=== PATIENT | female | born 1960 | race Two or more races ===

== ENCOUNTER 2025-04-18 07:22 | Observation (INO) | payer OTHER ==
[2025-04-10 15:27] LABS: MEAN PLATELET VOLUME 6.1 FL (7.4-10.4); PRE OP HEMATOCRIT 41.3 % (35.0-45.0); PRE OP HEMOGLOBIN 13.9 g/dL (12.0-16.0); PRE OP PLATELET COUNT 381 X10'3 (140-440); PRE OP WHITE BLOOD COUNT 7.7 10'3 (4.8-10.8); RED CELL DISTRIBUTION WIDTH 14.2 % (11.5-14.5)
[2025-04-10 15:37] LABS: CREATININE 0.70 MG/DL (0.40-0.90); PRE OP ALT 19 U/L (30-65); PRE OP ANION GAP 5 (8-16); PRE OP AST 19 U/L (10-37); PRE OP BILIRUB, TOTAL 0.4 MG/DL (0.0-1.0); PRE OP GLUCOSE 82 MG/DL (70-104); PRE OP POTASSIUM 3.7 MMOL/L (3.4-5.1); PRE OP SODIUM 139 MMOL/L (135-145); TOTAL CARBON DIOXIDE 29.1 MMOL/L (24-32); eGFR 85 ML/MIN
[2025-04-18] VITALS (19 sets, daily range): BP systolic 98–142; BP diastolic 48–82; PULSE 41–73; RESP 11–16; TEMP 96.9–97.8; O2SAT 94–100
[~2025-04-18] VITALS: Ht 167.6 cm; Wt 90.9 kg
[2025-04-18] MEDS: ceFAZolin 2gm/dext,iso 50mL 50 ML IV ONE (05:30)
[~2025-04-18 07:22] MED LIST: ACET-812 PO; CELE200C PO; MAGN100T PO; OMEG-5 PO; ROPIVAcaine 0.5% (5mg/ml) 30ml vial ONE; TRAM50TA2 PO; ZINC220T3 PO; ZOLP5TAB19 PO; [UNRECOGNIZED DRUG - CODE] PO
[2025-04-18] MEDS ORDERED: PCA WASTE DOCUMENTATION 1 MG ML MC SCH (07:25)
[2025-04-18] MEDS ORDERED: bisacodyl 10mg suppository rectal RC PRN (07:25)
[2025-04-18] MEDS ORDERED: magnesium hydroxide 30ml (MOM) UD suspension PO PRN (07:25)
[2025-04-18] MEDS: ringers solution, lacted 1,000 ML IV SCH ×2 (07:56→10:00)
[2025-04-18] MEDS: vancomycin/NS 1 GM ADD-VANTAGE 250 ML IV ONE (07:56)
[2025-04-18] MEDS: zinc sulfate 220mg capsule PO SCH (08:00)
[2025-04-18] MEDS: MAGNESIUM GLYCINATE 120 MG PO SCH (08:00)
[2025-04-18] MEDS: OMEGA-3/DHA/EPA/FISH OIL 1 EACH CAPSULE.DR PO SCH (08:00)
[2025-04-18] MEDS ORDERED: tetracaine 1% (10mg/ml) pres. free inj. ONE (09:02)
[2025-04-18] MEDS ORDERED: fentaNYL/PF 50MCG/1 ML 2ML syringe ONE (09:19)
[2025-04-18] MEDS ORDERED: MIDAZolam 1mg/ml 10ml vial ONE (09:19)
[2025-04-18] MEDS ORDERED: propofol inj 20 ML IV ONE ×2 (09:28)
[2025-04-18] MEDS ORDERED: hydrALAZINE 20mg/ml inj. IV PRN (10:00)
[2025-04-18] MEDS ORDERED: ROPIVAcaine 0.2% (10 MG/5 ML) BOLUS INJECTION ADDCANAL PRN (10:00)
[2025-04-18] MEDS ORDERED: ondansetron/PF 4mg/2ml inj IV PRN (10:00)
[2025-04-18] MEDS ORDERED: fentaNYL/PF 50MCG/1 ML 2ML syringe IV PRN ×2 (10:00)
[2025-04-18] MEDS ORDERED: morphine 4 MG/ML inj SYRINge IV PRN (10:00)
[2025-04-18] MEDS ORDERED: labetalol 20mg/4ml (5mg/ml) syringe IV PRN (10:00)
--- NOTE | 2025-04-18 10:06 | ANESTHESIA RECORDS ---
Nerve Block Providers to CC CC: AMILCAR TSAI MD ~ Diagnosis: Nerve Block requested by: AMILCAR TSAI MD Neuraxial/Peripheral Nerve Block requested for Post-operative analgesia by Physician above DIAGNOSIS: Post-operative pain. (Body Area) Shoulder: [ ] Arm: [ ] Hand: [ ] Hip: [ ] Knee: [ ] Ankle: [ ] Foot: [ ] Leg: [ ] Abdomen: [ ] Other: [ ] Post-operative pain expected to be/is inadequately managed by oral or IV medicines. Regional anesthetic expected to facilitate rehabilitation and/or discharge from facility. Other:[ _] Procedure Performed: Femoral / Saphenous: Left Time out Done?: Yes Time of Time out: 09:25 Procedure Details: PROCEDURE DETAILS: Risks, benefits and alternatives explained Informed consent obtained, and patient wishes to proceed Conscious sedation with indicated monitors Patient positioned, pertinent anatomy defined, sterile technique used Needle used: [ ] 3 1/8 inch Stimuplex Ultra 22ga [ ] 4 inch Stimuplex Ultra 20ga [ ] 6 inch Stimuplex Ultra 20ga [ x] 6 inch, Quikbloc over the needle catheter set 20ga [ ] 4 inch Quikbloc over the needle catheter set 20ga [ ]Other: [ ] Loss of twitch @ [ ]mA [ ] Single Injection [ X] Catheter Ultrasound Guidance Used: [X ] Yes [ ] No Attempts:[ 1 ] Medicines injected: [ ]Clonidine Amt:[ ] [ ]Dexamethasone Amt:[ ] [X ]Ropivacaine Amt:[_0.5% 30 C.C ] [ ]Bupivacaine Amt:[ ] [ ]Lidocaine Amt:[ ] [ ]Exparel 1.33%:[ ] [ ]Epinephrine Amt[ ] [ ]Other: [ ] Intermittent aspiration during local anesthetic administration No symptoms of intraneural or intravenous injection Patient tolerated procedure well Comments left mid medial thigh is examined with Ultrasound and Adductor canal and vessels in the canal are identified. Catheter over needle is placed in the canal and upon negative aspiration,local mix is injected,spread is noted. Needle is removed,catheter is secured. sterile dresssings applied .On Q pump is ordered. Ultrasound images captured and documented. DIANN BEYER MD Apr 18, 2025 10:06
[2025-04-18] MEDS ORDERED: ROPIVAcaine 0.5% (5mg/ml) 30ml vial ONE (10:24)
[2025-04-18] MEDS: ROPIVAcaine 0.2%/PF PUMP/bolus 545 ML ADDCANAL SCH (12:09)
--- NOTE | 2025-04-18 15:10 | OPERATIVE REPORT ---
Operative Report Operative Report OPERATIVE REPORT [facility] [address] [place] [address] Date of service: April 18, 2025 PREOPERATIVE DIAGNOSIS M17..16 Primary osteoarthritis of left knee POSTOPERATIVE DIAGNOSIS M17..16 Primary osteoarthritis of left knee Operation Performed 16000 Total Knee Arthroplasty with this modifier: [place] [id number] Computer Assisted Navigation Musculoskeletal - Imageless Procedure: Computer-assisted, robotically-assisted, left total knee arthroplasty. Surgeon: Dr. Faraz Chou Neurodiagnostic Tech: Pavithra Martínez PA-C Anesthesiologist: Dr. Blackmon Anesthesia: General anesthetic Indications: 64-year-old female who has chronic osteoarthritis of the left knee with severe pain and limitation of activities despite extensive non-operative management. This patient has had extensive conservative treatment of knee joint arthritis, including rest, external joint support, anti-inflammatory medications, physical therapy, and corticosteroid injection. Physical therapy has been provided, along with a home exercise program prior to making the deci isabel to proceed with surgical treatment. This therapeutic intervention did not provide any substantial relief of symptoms or improvement in function. The patient has been utilizing a cane, set of crutches, or walker, for more than 3 months prior to deciding to proceed with surgery. These interventions have not provided sufficient relief of pain to allow improvement in function. The patient has utilized non-steroidal anti-inflammatory medications for relief of pain over an extended period of time (more than 2 months), and has not experienced sufficient improvement in symptoms. Despite these treatments, this patient has continued difficulties with pain and limited function. They are unable to walk long distances, do vigorous activities, sit or sleep comfortably. Total knee replacement is the next reasonable step in terms of treatment. Indications for virtual assistant for advertisers surgeon: A second set of skilled hands with specific orthopedic knowledge of the surgical procedure and orthopedic surgical techniques was necessary to accomplish this operation successfully, and with the least amount of morbidity for the patient. This facilitated operative exposure, manipulation and handling of tissues, placement of any implants, and accomplishment of wound closure. Findings: There was indeed a very severely arthritic knee, with loss of cartilage, exposed bone, and marginal osteophytes. The medial compartment was particularly bad. A 5 degree varus deformity and 0 degree flexion contracture were measured preoperatively. Post operative alignment was 0 varus, and 3 extension. Complications: None Estimated Blood Loss: 150 cc Implants: A Romeo Persona CR total knee system was utilized with a size nine narrow left bone ingrowth femoral component, a size F left bone ingrowth tibial component, and a 32 mm cemented patellar component. A 10 mm medial congruent left tibial insert was utilized. The [employer] robotically assisted total knee arthroplasty system and computer was utilized. Procedure: The risks, benefits, expected results, and possible complications of the planned procedure had been explained to the patient and informed consent obtained. The patient was taken to the operating room and underwent a general anesthetic. The patient was placed in the supine position on the operating ta ble, and the left leg was prepped and draped in the usual fashion. A timeout was taken prior to surgery, confirming patient identification, operative side operative site, planned procedure, administration of pre-operative antibiotics, site marking, and presence of all necessary implants and instruments, x-rays and equipment. A standard anterior, slightly mediall approach was performed with a medial parapatellar arthrotomy, and a VMO split. Time was then spent removing excessive synovial tissue and exposing the medial and lateral gutters, as well as moving the anterior sections of the residual menisci. The patella was mobilized to be able to be retracted laterally. This gave exposure of the anterior aspect of the knee. Attention was then directed to the patella. An oscillating saw was utilized to make a flat cut in a freehand manner, removing approximately 9 mm of thickness. The patella was then sized and drilled for the appropriate size patella implant. Infrared arrays were then placed on the femur and the tibia. Utilizing the Az[employer] computer system, the hip, knee, and ankle were landmarked in usual fashion. The initial alignment measurements were then taken confirming the above listed deformity. Surgical planning was then carried out on the computer, confirming alignment of components, sizing, and gap balancing. Appropriate soft tissue releases were performed. The robot was then utilized to make the distal femoral cut. The femur was prepared in 4 degrees of flexion and neutral coronal alignment. The distal femoral 4 in 1 block was placed with the robot, and the remaining femoral cuts also performed. The robot was then utilized to cut the proximal tibia in 5 degrees of flexion and neutral coronal alignment. The computer was then utilized to check longitudinal alignment and soft tissue balance, and this confirmed excellent alignment. Next the dynamic balancing block was utilized to check and adjust soft tissue balancing. Finally, attention was directed to the proximal tibia. The implant was sized and properly rotated, and the peg punch performed. Final check of alignment and balancing was then carried out, as well as final removal and cleaning up of soft tissue such as meniscal remnants and osteophytes. Cement was then mixed; one batch was utilized for the patella. The tibia was impacted with the mallet, seating it quite nicely in its proper rotational alignment. The femoral cuts were cleaned with a pulsating lavage and then dried with the lap sponges, and the femur was impacted into position with a mallet. The patella was held firmly in place with a clamp. Excess cement was removed around the margins of the patella as the cement cured. Pressure was held on the femoral component and tibia by placing a spacer and bringing the leg to full extension and applying axial and hyperextension force. Upon complete hardening of all cement, the knee was inspected and excess cement removed. We lavaged the knee to wash out any debris. The tibial trial spacer was replaced and overall alignment checked with computer, ensuring we had full extension of the knee, and appropriate medial and lateral soft tissue balance, as well as flexion and extension balance. The wound was irrigated thoroughly one more time and then dried with lap sponges. The final tibial spacer was impacted and locked into the locking mechanism without difficulty After final irrigation and suction of excess fluid, the knee was infiltrated with ropivicaine anesthetic for postoperative pain control. The tibial and femoral navigation pins and arrays were removed. The wound was then closed in layers including retinacular closure, subcutaneous tissue, and skin. Sterile dressing was applied and the patient was returned to the recovery room in satisfactory condition Electronically Signed by: Faraz Chou MD Doctor, Orthopedic Surgery Signed on: 04/18/2025 03:10 PM FARAZ CHOU MD Apr 18, 2025 15:10
[2025-04-18] MEDS: oxyCODONE IR 5mg (immed. release) tablet PO PRN (17:31)
[2025-04-18] MEDS: ceFAZolin/D5W- 1GM premix 50 ML IV SCH (17:32)
[2025-04-18] MEDS: ondansetron/PF 4mg/2ml inj IV PRN (21:08)
[2025-04-18] MEDS: vancomycin/NS 1 GM ADD-VANTAGE 250 ML IV SCH (22:48)
[2025-04-19 02:00] VITALS: BP 137/77; PULSE 68; RESP 14; TEMP 98.5; O2SAT 97
[2025-04-19 05:54] LABS: MEAN PLATELET VOLUME 6.0 FL (7.4-10.4); RED CELL DISTRIBUTION WIDTH 13.9 % (11.5-14.5)
[2025-04-19 06:00] VITALS: BP 102/60; PULSE 68; RESP 14; TEMP 97.2; O2SAT 97
[2025-04-19 06:33] LABS: TOTAL CARBON DIOXIDE 28.0 MMOL/L (24-32)
--- NOTE | 2025-04-19 07:25 | PROGRESS NOTE ---
Progress Note Ortho Ortho Post Op Day #: 1 Follow Up Progress Note Patient was admitted on date of surgery. She is having some issues with proximal incisional bleeding that was noted this morning. The dressing has been reinforced with 4 x 4's and an additional Tres wrap for pressure dressing. This is expected to come down after some time. There is no acute concern at this point. She is also experiencing some lightheaded and dizziness when working with physical therapy. Her vital signs have remained stable. She has not been cleared by physical therapy at this time. She will require an additional overnight stay for pain control and ability to appropriately be assessed by and cleared by physical therapy ROS ROS No new complaints Exam Exam: Alert and Oreinted x4, Vital signs are stable, In no acute distress, Distal neurovasc intact Problem/Assessment/Plan Assessment\Plan: Start Physicial Therapy Results/Orders Result Diagram: 04/19/25 0534 04/19/[address] [facility] Apr 19, 2025 07:25
[2025-04-19] MEDS ORDERED: potassium Cl 40MEQ/1/2NS 520ml 520 ML IV PRN (08:45)
[2025-04-19] MEDS ORDERED: potassium Cl 20 mEq SR tablet PO PRN (08:45)
[2025-04-19] MEDS: potassium Cl 20 mEq SR tablet PO PRN (09:06)
[2025-04-19 10:00] VITALS: BP 121/64; PULSE 80; RESP 16; TEMP 98.1; O2SAT 97
[2025-04-19 18:00] VITALS: BP 116/73; PULSE 64; RESP 16; TEMP 97.5; O2SAT 99
[2025-04-19 20:00] VITALS: RESP 19; O2SAT 96
[2025-04-19 22:00] VITALS: BP 134/69; PULSE 69; RESP 19; TEMP 97.8; O2SAT 94
[2025-04-20 06:00] VITALS: BP 127/71; PULSE 70; RESP 14; TEMP 98.9; O2SAT 94
[2025-04-20 06:37] LABS: MEAN PLATELET VOLUME 6.2 FL (7.4-10.4); RED CELL DISTRIBUTION WIDTH 14.1 % (11.5-14.5)
--- NOTE | 2025-04-20 06:51 | DISCHARGE SUMMARY ---
Discharge Summary Ortho CC ~ Discharge Summary Discharge Date: Apr 20, 2025 *Problems/Diagnosis: (1) S/P total knee arthroplasty Status: Acute Admission Diagnosis: Osteoarthritis Discharge Diagnosis\Comment: see above Operations\Procedures see above Consultants: none Complications: none Condition on DC: Stable Discharge Summary: Patient was admitted on date of surgery. Surgery went without complication. Hospital admission was uneventful. Patient has cleared physical therapy and is safe to be d/c home. Total Time Spent on D/C: Up to 30 Minutes Medications Home Meds: Home Medications Active Reported Garlic Oil (Garlic Extract) 500 Mg Capsule 1 Cap PO DAILY Zinc (Zinc Sulfate) 50 Mg Zinc (220 Mg) Tablet 1 Tab PO DAILY 30 Days Fish Oil 1,000 Mg Softgel (Docosahexanoic Acid/Epa) 300 Mg-1,000 Mg Capsule 1,000 Mg PO DAILY Ambien* (Zolpidem Tartrate) 5 Mg Tablet 2 Tab PO HS PRN Twice a week Celebrex (Celecoxib) 200 Mg Capsule 1 Cap PO BID 30 Days Mag Glycinate (Magnesium Glycinate) 100 Mg Tablet 120 Mg PO DAILY 30 Days Tylenol Extra Strength (Acetaminophen) 500 Mg Tablet 2 Tablet PO BID PRN Tramadol HCl 50 Mg Tablet 1 Tab PO BID PRN 7 Days Supervising Physician Supervising Physician: Dr. Faraz Chou Problem Qualifiers (1) S/P total knee arthroplasty: Qualified Codes: Z96.652 - Presence of left artificial knee joint GRISELDA SWIFT Apr 20, 2025 06:51
[2025-04-20 08:00] VITALS: RESP 14; O2SAT 94
[2025-04-20] MEDS: OMEGA-3/DHA/EPA/FISH OIL 1 EACH CAPSULE.DR PO SCH (08:24)
[2025-04-20 10:00] VITALS: BP 120/60; PULSE 84; RESP 16; TEMP 98.2; O2SAT 95
[2025-04-20 11:46] VITALS: RESP 16
== END 2025-04-20 12:25 | disposition home or self-care (01) ==
LOC: PAS 07:22 → ORTHO 4S 07:28 → EDBD 12:30
PROVIDERS: ADMIT Orthopaedic Surgery; ATTEND Orthopaedic Surgery
DX: M17.12 Unilateral primary osteoarthritis, left knee (principal); M17.32 Unilateral post-traumatic osteoarthritis, left knee; M25.562 Pain in left knee; Z79.899 Other long term (current) drug therapy; Z98.890 Other specified postprocedural states
CPT/HCPCS: 20985; 27447; 36415; 80051; 80053; 82948; 85025; 87081; 96365; 96366; 96368; 96375; 96376; 97116; 97161; 97530; C1713; C1776; G0378; J0690; J1171; J2250; J2405; J2704; J2795; J3010; J3373; J3490; J7040; J7120; A4215; A4620; A6449; A7000